=== PATIENT | female | born 1945 | race Caucasian/White ===

== ENCOUNTER 2018-11-19 08:00 | Outpatient (CLI) | payer MEDICARE, OTHER ==
[2018-11-19 13:05] LABS: BASOPHILS # (AUTO) 0.2 10^3/uL (0.0-0.1); BASOPHILS % (AUTO) 2.5 %; EOSINOPHILS # (AUTO) 0.4 10^3/uL (0.0-0.7); EOSINOPHILS % (AUTO) 5.9 %; HGB - HEMOGLOBIN 12.5 g/dL (12.0-16.0); LYMPHOCYTES # (AUTO) 1.7 10^3/uL (1.5-3.5); MEAN CORPUSCULAR HEMOGLOBIN 29.9 pg (27.0-31.0); MEAN CORPUSCULAR HGB CONC 34.3 g/dL (32.0-36.0); MEAN CORPUSCULAR VOLUME 87.1 fL (81.0-99.0); MEAN PLATELET VOLUME 7.7 fL (7.9-10.8); MONOCYTES # (AUTO) 0.5 10^3/uL (0.0-1.0); NEUTROPHILS # (AUTO) 4.1 10^3/uL (1.5-6.6); NEUTROPHILS % (AUTO) 59.6 %; PLT - PLATELET COUNT 332 10^3/uL (130-450); RED BLOOD COUNT 4.18 10^6/uL (4.20-5.40); RED CELL DISTRIBUTION WIDTH 12.4 % (12.0-15.0); WHITE BLOOD COUNT 6.9 x10^3/uL (4.8-10.8)
[2018-11-19 13:37] LABS: ALBUMIN 4.1 g/dL (3.2-5.5); ALBUMIN/GLOBULIN RATIO 1.2 (1.0-2.2); ALKALINE PHOSPHATASE 86 IU/L (42-121); ALT ALANINE AMINOTRANSFERASE 50 IU/L (10-60); AST ASPARTATE AMINOTRANSFERASE 34 IU/L (10-42); BILIRUBIN,TOTAL 0.7 mg/dL (0.2-1.0); BUN - BLOOD UREA NITROGEN 17 mg/dL (6-20); CALCIUM 8.7 mg/dL (8.5-10.3); CARBON DIOXIDE - CO2 26 mmol/L (21-32); CHLORIDE 99 mmol/L (101-111); CHOLESTEROL 293 mg/dL; CREATININE 1.1 mg/dL (0.4-1.0); GFR - MDRD 49 (>89); GLUCOSE 172 mg/dL (70-100); HDL CHOLESTEROL 49 mg/dL; LDL CHOLESTEROL,CALCULATED 204 mg/dL; LDL/HDL RATIO 4.2 (<4.4); SODIUM 133 mmol/L (135-145); TOTAL PROTEIN 7.6 g/dL (6.7-8.2); VLDL CHOLESTEROL 40 mg/dL
[2018-11-19 14:49] LABS: HB2 TOTAL 13.4 g/dL; HEMOGLOBIN A1C 0.6 g/dL; HEMOGLOBIN A1C % 6.2 % (4.6-6.2)
== END 2018-11-19 23:59 | disposition home or self-care (01) ==
LOC: LAB.WCP 08:00
PROVIDERS: ATTEND Family Medicine
DX: E11.9 Type 2 diabetes mellitus without complications (principal); I10 Essential (primary) hypertension; E78.5 Hyperlipidemia, unspecified
CPT/HCPCS: 36415; 80053; 80061; 83036; 83721; 84443; 85025

== ENCOUNTER 2018-11-29 10:18 | Outpatient (CLI) | payer MEDICARE | END 2018-11-29 10:19 | disposition home or self-care (01) | LOC: RT 10:18 | PROVIDERS: ATTEND Internal Medicine Gastroenterology | DX: E78.5 Hyperlipidemia, unspecified (principal); I10 Essential (primary) hypertension | CPT/HCPCS: 93005 ==

== ENCOUNTER 2018-12-03 06:07 | Day surgery (SDC) | payer MEDICARE ==
[2018-12-03] MEDS ORDERED: fentaNYL 250 MCG/5 ML VIAL IVP ONE (06:08)
[2018-12-03] MEDS ORDERED: MIDAZOLAM 2 MG/2 ML VIAL IVP ONE (06:08)
[2018-12-03] MEDS ORDERED: LACTATED RINGERS 1,000 ML IV ONE (06:50)
[2018-12-03 08:31] VITALS: BP 148/75
== END 2018-12-03 06:08 | disposition home or self-care (01) ==
LOC: SDS 06:07
PROVIDERS: ATTEND Internal Medicine Gastroenterology
PROC: 0DBL8ZZ Excision of Transverse Colon, Via Natural or Artificial Opening Endoscopic (ICD-10-PCS; 2018-12-03)
PROC: 0DBN8ZZ Excision of Sigmoid Colon, Via Natural or Artificial Opening Endoscopic (ICD-10-PCS; 2018-12-03)
PROC: 0DBP8ZZ Excision of Rectum, Via Natural or Artificial Opening Endoscopic (ICD-10-PCS; 2018-12-03)
PROC: 0DBP8ZX Excision of Rectum, Via Natural or Artificial Opening Endoscopic, Diagnostic (ICD-10-PCS; principal; 2018-12-03 07:30)
DX: C20 Malignant neoplasm of rectum (principal); D12.5 Benign neoplasm of sigmoid colon; D12.3 Benign neoplasm of transverse colon; K62.1 Rectal polyp; K57.30 Diverticulosis of large intestine without perforation or abscess without bleeding; E11.9 Type 2 diabetes mellitus without complications; I10 Essential (primary) hypertension; E78.5 Hyperlipidemia, unspecified; Z79.02 Long term (current) use of antithrombotics/antiplatelets
CPT/HCPCS: 45380; J3010; J7120

== ENCOUNTER 2018-12-09 10:05 | Outpatient (CLI) | payer MEDICARE | END 2018-12-09 10:06 | disposition home or self-care (01) | LOC: LAB 10:05 | PROVIDERS: ATTEND Internal Medicine Gastroenterology | DX: C20 Malignant neoplasm of rectum (principal) | CPT/HCPCS: 36415; 82378 ==

== ENCOUNTER 2018-12-14 11:56 | Outpatient (CLI) | payer MEDICARE ==
[2018-12-14] MEDS ORDERED: IOVERSOL 320 100 ML VIAL IVP ONE ×2 (12:09→17:03)
[2018-12-14] MEDS ORDERED: IOPAMIDOL-300 50 ML VIAL ONE (12:09)
--- NOTE | 2018-12-14 15:47 | CT Report ---
Reason: RECTAL CANCER Procedure Date: 12/14/2018 Accession Number: [id number] / [id number] Procedure: CT - Abdomen/Pelvis W CPT Code: FULL RESULT: EXAM: CT CHEST, ABDOMEN AND PELVIS EXAM DATE: 12/14/2018 01:46 PM. CLINICAL HISTORY: Rectal carcinoma. COMPARISONS: ABDOMEN/PELVIS W/ 12/14/2018 1:34 PM. TECHNIQUE: Routine helical CT imaging was performed through the chest, abdomen, and pelvis. IV contrast: OPTI 320 100mL. Enteric contrast: No. Reconstructions: Coronal and sagittal. In accordance with CT protocol optimization, one or more of the following dose reduction techniques were utilized for this exam: automated exposure control, adjustment of mA and/or KV based on patient size, or use of iterative reconstructive technique. FINDINGS: Lungs/Pleura: A solitary 3 mm pulmonary nodule is seen on image 23 series 3 in the left upper lobe, no spiculations. No suspicious nodules, bronchial thickening, consolidation, or edema. Pulmonary vasculature is normal. No effusions or pneumothorax. Mediastinum: The thoracic aorta demonstrates a marked amount of soft atherosclerotic plaque without significant calcifications and no aneurysm formation. There is no pericardial effusion and the pulmonary artery is normal in caliber. No mediastinal or hilar lymphadenopathy is appreciated. Liver: Normal. Gallbladder/Bile Ducts: Marked cholelithiasis without cholecystitis. Spleen: Normal. Pancreas: Normal. Adrenal Glands: Normal. Kidneys: No hydronephrosis or calculi. Peritoneal Cavity/Bowel: There is no bowel obstruction. There is no intraperitoneal or retroperitoneal lymphadenopathy in the abdominal cavity. No free fluid or free air. Pelvic Organs: A 0.9 x 0.6 cm deep iliac node on image 62 series 3 does not meet size criteria but is prominent and without fatty hilum, refer to image 32 of series 5. Contralaterally, and less prominent on image 59 series 3 and image 31 series 5 is a 0.8 x 0.4 cm node, this does not meet size criteria. The known rectal cancer is not well seen. Surrounding fat in the ischioanal fossa is generally preserved. Vasculature: Abdominal aorta is atherosclerotic, mixed calcific and soft plaque. Bones: No aggressive osseous lesions. Other: None. IMPRESSION: Prominent subcentimeter lymph nodes as described. No evidence of distal metastatic disease. RADIA
[2018-12-14] MEDS ORDERED: IOPAMIDOL-300 50 ML VIAL PO ONE (17:03)
== END 2018-12-14 11:57 | disposition home or self-care (01) ==
LOC: DI 11:56
PROVIDERS: ATTEND Internal Medicine Gastroenterology
DX: C20 Malignant neoplasm of rectum (principal); K80.20 Calculus of gallbladder without cholecystitis without obstruction; R91.1 Solitary pulmonary nodule
CPT/HCPCS: 71260; 74177; Q9967

== ENCOUNTER 2019-01-05 15:32 | Outpatient (CLI) | payer MEDICARE ==
[2019-01-05 16:18] LABS: BILIRUBIN,URINE NEGATIVE (NEGATIVE); GLUCOSE, URINE (UA) NEGATIVE (NEGATIVE); KETONES,URINE (UA) NEGATIVE (NEGATIVE); LEUKOCYTE ESTERASE, URINE NEGATIVE (NEGATIVE); NITRITE,URINE NEGATIVE (NEGATIVE); OCCULT BLOOD,URINE NEGATIVE (NEGATIVE); PROTEIN,URINE NEGATIVE (NEGATIVE); UROBILINOGEN,URINE 0.2 (NORMAL) E.U./dL (NORMAL)
[2019-01-05 16:28] LABS: CREATININE,URINE 26.2 mg/dL; MICROALBUMIN,URINE 1.1 mg/dL (0-300.0)
[2019-01-05 16:38] LABS: BACTERIA,URINE None Seen /HPF (None Seen); CLARITY,URINE CLEAR (CLEAR); RBC,URINE None Seen /HPF (0-5); SQUAMOUS EPITHELIAL CELL,UR NONE SEEN (<= Few)
== END 2019-01-05 15:33 | disposition home or self-care (01) ==
LOC: LAB 15:32
PROVIDERS: ATTEND Internal Medicine Nephrology
DX: N28.9 Disorder of kidney and ureter, unspecified (principal); N39.0 Urinary tract infection, site not specified
CPT/HCPCS: 36415; 81001; 82043; 82570; 87086

== ENCOUNTER 2019-01-11 08:00 | Day surgery (SDC) | payer MEDICARE ==
[~2019-01-11 08:00] MED LIST: ceFAZolin 2 GM/50 ML 2 GM/50 ML BAG IV ONE; metroNIDAZOLE 500 MG/100 ML 500 MG/100 ML BAG ONE
[2019-01-11] MEDS ORDERED: LACTATED RINGERS 1,000 ML IV ONE ×2 (08:03→13:00)
--- NOTE | 2019-01-11 09:04 | ANESTHESIA ---
Pre-Anesthesia VS, & Labs - Diagnosis Rectal Cancer - Procedure transanal resection of Rectal Tumor Vital Signs: Temp Pulse Resp BP Pulse Ox 36.2 C L 97 16 160/79 H 96 01/11/19 08:21 01/11/19 08:21 01/11/19 08:21 01/11/19 08:21 01/11/19 08:21 Height 5 ft 2 in Weight (kg) 60 kg - NPO >8 hours - Is Patient ?: No - Lab Results Current Lab Results: Laboratory Tests 01/11/19 08:28: POC Whole Bld Glucose 151 H Home Medications and Allergies Glimepiride 2 mg PO DAILY 12/03/18 Rosuvastatin Calcium 20 mg PO DAILY 12/03/18 Telmisartan/Amlodipine [Telmisartan-Amlodipine 40-5 mg] 1 each PO DAILY 12/03/18 Allergies/Adverse Reactions: Allergies Allergy/AdvReac Type Severity Reaction Status Date / Time No Known Drug Allergies Allergy Verified 12/03/18 06:28 Anes History & Medical History - Anesthetic History Anesthesia Complications: reports: No previous complications - Medical History Cardiovascular: reports: Hypertension, High cholesterol Pulmonary: reports: None Gastrointestinal: reports: GI bleed, Other Urinary: reports: Nocturia Musculoskeletal: reports: None Endocrine/Autoimmune: reports: Type 2 diabetes Skin: reports: None Smoking Status: Never smoker - Surgical History General: Colonoscopy Exam General: Alert Dental: WNL Neck Mobility: Normal Mallampati classification: II Respiratory: Lungs clear Cardiovascular: Regular rate, Normal S1, Normal S2 Plan Anesthesia Type: General Consent for Procedure(s) Verified and Reviewed: Yes Code Status: Attempt Resuscitation ASA classification: 2-Mild systemic disease Is this case an emergency?: No
[2019-01-11] MEDS ORDERED: LIDOCAINE JELLY 2% 5 ML TUBE TOP ONE (10:40)
[2019-01-11] MEDS ORDERED: LIDOCAINE JELLY 2% 6 ML JEL.PF.APP ONE (10:40)
[2019-01-11] MEDS ORDERED: BUPIVACAINE 0.5%-EPI 1:200000 PF 30 ML VIAL SUBQ ONE ×2 (11:01)
[2019-01-11] MEDS ORDERED: BUPIVACAINE 0.5%-EPI 1:200000 PF 30 ML VIAL ONE (11:05)
[2019-01-11] MEDS ORDERED: fentaNYL 100 MCG/2 ML VIAL IVP ONE (11:07)
[2019-01-11] MEDS ORDERED: ePHEDrine 50 MG/ML VIAL IVP ONE (11:07)
[2019-01-11] MEDS ORDERED: ROCURONIUM 50 MG/5 ML VIAL IVP ONE (11:07)
[2019-01-11] MEDS ORDERED: ceFAZolin 2 GM/50 ML 2 GM/50 ML BAG IV ONE (11:07)
[2019-01-11] MEDS ORDERED: PROPOFOL 200 MG/20 ML VIAL IVP ONE (11:07)
[2019-01-11] MEDS ORDERED: GLYCOPYRROLATE 1 MG/5 ML VIAL IVP ONE (11:07)
[2019-01-11] MEDS ORDERED: NEOSTIGMINE 1 MG/1 ML 10 ML MDV IVP ONE (11:07)
[2019-01-11] MEDS ORDERED: ONDANSETRON 4 MG/2 ML VIAL IVP ONE (11:07)
[2019-01-11] MEDS ORDERED: ACETAMINOPHEN 1,000 MG/100 ML 100 ML IV ONE (11:07)
[2019-01-11] MEDS ORDERED: MIDAZOLAM 2 MG/2 ML VIAL IVP ONE (11:07)
[2019-01-11] MEDS ORDERED: metroNIDAZOLE 500 PREMIX IV ONE (11:07)
[2019-01-11] MEDS ORDERED: ONDANSETRON 4 MG/2 ML VIAL IVP PRN (11:31)
[2019-01-11] MEDS ORDERED: ACETAMINOPHEN 325 MG TABLET PO PRN (11:31)
[2019-01-11] MEDS ORDERED: IBUPROFEN 400 MG TABLET PO PRN (11:31)
--- NOTE | 2019-01-11 12:18 | OPERATIVE REPORT ---
DATE OF SERVICE: 01/11/2019 Physician: James Langston MD PREOPERATIVE DIAGNOSIS: Rectal cancer. POSTOPERATIVE DIAGNOSIS: Rectal cancer. PROCEDURE PERFORMED: Transanal resection of rectal cancer. ANESTHESIA: General endotracheal by Dr. Arora. SURGEON: James Langston MD ESTIMATED BLOOD LOSS: 10 mL COMPLICATIONS: None. FINDINGS: An ulcerated 1.5 cm lesion was present in the anterior wall of the lower rectum near the j unction of the lower and middle thirds. A full-thickness rectal wall excision was performed with virgie ss margins of 5 to 10 mm circumferentially. INDICATIONS: The patient is a 73-year-old woman who was noted on recent colonoscopy to have a sessil e polypoid lesion in the anterior wall of the lower rectum measuring 1.5 cm in diameter, biopsy which revealed invasive adenocarcinoma. Staging evaluation revealed no evidence of transmural involvement or regional or distant spread, and she was interested and advised to undergo a sphincter-sparing tra nsanal excision in an attempt at sphincter breast-conservation therapy. TECHNIQUE: After informed consent mechanical antibiotic bowel preparation, the patient was taken to the operating room where she was placed under general endotracheal anesthesia. She was placed in the prone jackknife position with the buttocks taped apart. Preoperative preparation also include appli cation of sequential calf compression boots, administration of 2 grams of cefazolin and 500 mg of met ronidazole intravenously within an hour of the incision. The anal canal was gently dilated to two fi ngerbreadths, and a bivalve anal speculum inserted. The lesion was identified, and margins were serena ed by scoring the mucosa with electrocautery circumferentially between 5 and 10 mm away from the mellissa s margin of the lesion. Stay sutures were placed bilaterally in the rectal wall with 0 Vicryl suture s. Next, using the LigaSure device, a full-thickness excision of the rectal wall including the lesion wi th the above margins was carried out en bloc, and the tissue sent for pathologic evaluation. The Lig aSure also provided hemostasis. The resulting defect in the rectal wall was repaired with a single l jaxson of continuous 0 Vicryl in a locking fashion to provide further hemostasis. The closure was perf ormed transversely to minimize narrowing of the rectal wall. Bimanual examination of the rectovagina l septum confirmed preservation of the vaginal wall. After hemostasis was assured, a wick of Gelfoam soaked in viscous Xylocaine was inserted in the anal canal. 20 mL of 0.5% Marcaine with epinephrine were infiltrated percutaneously to create an anorectal block. Dry sterile dressings were applied. Anesthesia was terminated, and patient was transferred to the recovery room in satisfactory condition . All counts were correct x2. No drains were used. BLOOD LOSS: 10 mL. cc: Ancelmo Hodge MD TD: 01/11/2019 11:45
[2019-01-11 14:39] VITALS: BP 125/63
== END 2019-01-11 08:01 | disposition home or self-care (01) ==
LOC: SDS 08:00
PROVIDERS: ATTEND Internal Medicine Gastroenterology
PROC: 0DBP0ZZ Excision of Rectum, Open Approach (ICD-10-PCS; principal; 2019-01-11 09:15)
DX: C20 Malignant neoplasm of rectum (principal); I12.9 Hypertensive chronic kidney disease with stage 1 through stage 4 chronic kidney disease, or unspecified chronic kidney disease; E11.22 Type 2 diabetes mellitus with diabetic chronic kidney disease; N18.9 Chronic kidney disease, unspecified; Z79.84 Long term (current) use of oral hypoglycemic drugs
CPT/HCPCS: 45171; J0131; J0690; J3490; J7120

== ENCOUNTER 2019-07-02 07:14 | Outpatient (CLI) | payer MEDICARE ==
[2019-07-02 12:34] LABS: BUN - BLOOD UREA NITROGEN 18 mg/dL (6-20); CALCIUM 9.3 mg/dL (8.5-10.3); CARBON DIOXIDE - CO2 27 mmol/L (21-32); CHLORIDE 105 mmol/L (101-111); CHOL/HDL RATIO 4.1 (<4.4); CHOLESTEROL 195 mg/dL; GFR - MDRD 54 (>89); GLUCOSE 129 mg/dL (70-100); HDL CHOLESTEROL 47 mg/dL; LDL CHOLESTEROL,CALCULATED 118 mg/dL; LDL/HDL RATIO 2.5 (<4.4); SODIUM 141 mmol/L (135-145); VLDL CHOLESTEROL 30 mg/dL
[2019-07-02 12:49] LABS: CREATININE,URINE 88.3 mg/dL; MICROALBUMIN,URINE 2.3 mg/dL (0-300.0)
[2019-07-02 13:22] LABS: HB2 TOTAL 13.7 g/dL; HEMOGLOBIN A1C 0.84 g/dL; HEMOGLOBIN A1C % 7.8 % (4.6-6.2)
== END 2019-07-02 23:59 | disposition home or self-care (01) ==
LOC: LAB.N 07:14
PROVIDERS: ATTEND Family Medicine
DX: E11.9 Type 2 diabetes mellitus without complications (principal); E78.5 Hyperlipidemia, unspecified
CPT/HCPCS: 36415; 80048; 80061; 82043; 82570; 83036; 83721; 84443

== ENCOUNTER 2024-05-05 10:06 | Emergency (ER) | payer MEDICARE ==
[2024-05-05 11:16] LABS: BASOPHILS # (AUTO) 0.1 10^3/uL (0.0-0.1); BASOPHILS % (AUTO) 1.5 %; EOSINOPHILS # (AUTO) 0.4 10^3/uL (0.0-0.7); EOSINOPHILS % (AUTO) 5.3 %; HGB - HEMOGLOBIN 12.1 g/dL (12.0-16.0); LYMPHOCYTES # (AUTO) 1.5 10^3/uL (1.5-3.5); LYMPHOCYTES % (AUTO) 22.9 %; MEAN CORPUSCULAR HEMOGLOBIN 29.2 pg (27.0-31.0); MEAN CORPUSCULAR HGB CONC 34.6 g/dL (32.0-36.0); MEAN CORPUSCULAR VOLUME 84.3 fL (81.0-99.0); MEAN PLATELET VOLUME 9.4 fL (7.9-10.8); MONOCYTES # (AUTO) 0.5 10^3/uL (0.0-1.0); NEUTROPHILS # (AUTO) 4.1 10^3/uL (1.5-6.6); PLT - PLATELET COUNT 284 10^3/uL (130-450); RED BLOOD COUNT 4.15 10^6/uL (4.20-5.40); RED CELL DISTRIBUTION WIDTH 13.1 % (12.0-15.0); WHITE BLOOD COUNT 6.6 x10^3/uL (4.8-10.8)
[2024-05-05 11:30] LABS: ALBUMIN/GLOBULIN RATIO 1.2 (1.0-2.2); BILIRUBIN,TOTAL 0.5 mg/dL (0.2-1.0); CALCIUM 9.1 mg/dL (8.5-10.3); CREATININE 0.8 mg/dL (0.6-1.3); POTASSIUM 3.2 mmol/L (3.5-4.5); TOTAL PROTEIN 7.3 g/dL (6.4-8.9)
--- NOTE | 2024-05-05 11:54 | ED Physician Documentation ---
History of Present Illness - Stated complaint Stated Complaint: GI,SOA,COUGH - Chief complaint Chief Complaint: Resp - History obtained from History obtained from: Patient - Additonal information Additional information: Patient is a 78-year-old female presenting to the emergency department with multiple complaints including rectal bleeding cough generalized fatigue that has been going on for multiple weeks.Patient has past medical history remarkable for rectal cancer, history of hypertension, history of type 2 diabetes on insulin. Patient has been compliant with her medications. She receives the majority of her care in the [facility] where she recently traveled from and returned on April 10 here to the [facility]. She has plans to return to the [facility] at the end of May but wanted to further evaluate her rectal bleeding prior to returning. She notes no dizziness or lightheadedness associated with her symptoms. She does feel short of breath with her acute cough. She denies any recent sick contacts but did recently travel from the [facility]. She denies any diarrhea. She notes intermittent rectal bleeding going on for multiple months. She notes this was similar to when she had rectal cancer back in 2019 where she had a colonoscopy to have it removed. She notes she has not followed up with this GI doctor. She denies requiring any chemo or radiation therapy. She denies any changes in weight or appetite. She denies any fevers or chills. She denies any abdominal pain associated with her symptoms.She has not seen anyone else for the symptoms. PD PAST MEDICAL HISTORY - Past Medical History Past Medical History: Yes Cardiovascular: Hypertension, High cholesterol Respiratory: None Neuro: None Endocrine/Autoimmune: Type 2 diabetes GI: GI bleed, Other : Nocturia HEENT: None Psych: None Musculoskeletal: None Derm: None - Past Surgical History Past Surgical History: Yes General: Colonoscopy - Present Medications Home Medications: Ambulatory Orders Medication Instructions Recorded Confirmed Clopidogrel Bisulfate [Plavix] 1 tab PO DAILY 05/05/24 05/05/24 Doxycycline [Vibramycin] 100 mg PO BID #14 tablet 05/05/24 Insulin NPH Hum/Reg Insulin Hm 1 unit SUBQ DAILY 05/05/24 05/05/24 [Novolin 70-30 Flexpen] amLODIPine [Norvasc] 10 mg PO DAILY 05/05/24 05/05/24 - Allergies Allergies/Adverse Reactions: Allergies Allergy/AdvReac Type Severity Reaction Status Date / Time No Known Drug Allergies Allergy Verified 05/05/24 10:35 - Social History Does the pt smoke?: No Smoking Status: Never smoker PD ED PE NORMAL - Vitals Vital signs reviewed: Yes - General General: Alert and oriented X 3 - HEENT HEENT: Atraumatic - Neck Neck: Supple, no meningeal sign - Cardiac Cardiac: RRR, No murmur, No gallop, No rub - Respiratory Respiratory: No respiratory distress, Clear bilaterally - Abdomen Abdomen: Normal bowel sounds, Soft, Non tender, Non distended - Female Female : Deferred - Rectal Rectal: Other (Rectal exam performed with community education coordinator present in room showing no palpable rectal mass there is an external nonbleeding nonthrombosed hemorrhoid with no significant pain on examination. No palpable internal hemorrhoids or mass on examination. Guaiac test is positive.) - Back Back: No CVA TTP - Derm Derm: Normal color - Extremities Extremities: No deformity - Neuro Neuro: Alert and oriented X 3 Results - Vitals Vitals: Vital Signs - 24 hr 05/05/24 05/05/24 05/05/24 10:18 12:29 14:00 Temperature 36.7 C Heart Rate 92 72 84 Respiratory 18 18 26 H Rate Blood Pressure 172/73 H 175/85 H 143/63 H O2 Saturation 98 98 95 Oxygen O2 Source Room air - Labs Labs: Microbiology 05/05/24 11:20 Occult Blood - Final Stool Laboratory Tests 05/05/24 05/05/24 05/05/24 10:55 10:55 10:55 WBC 6.6 RBC 4.15 L Hgb 12.1 Hct 35.0 L MCV 84.3 MCH 29.2 MCHC 34.6 RDW 13.1 Plt Count 284 MPV 9.4 Neut # (Auto) 4.1 Lymph # (Auto) 1.5 Whitfield # (Auto) 0.5 Eos # (Auto) 0.4 Baso # (Auto) 0.1 Absolute Nucleated RBC 0.00 Nucleated RBC % 0.0 Sodium 139 Potassium 3.2 L Chloride 105 Carbon Dioxide 28 Anion Gap 6.0 BUN 11 Creatinine 0.8 Estimated GFR (MDRD) 69 L Glucose 171 H Calcium 9.1 Total Bilirubin 0.5 AST 13 ALT 10 Alkaline Phosphatase 103 Total Protein 7.3 Albumin 4.0 Globulin 3.3 Albumin/Globulin Ratio 1.2 Lipase 25 Nasal Adenovirus (PCR) NOT DETECTED Nasal B. parapertussis DNA (PCR) NOT DETECTED Nasal Coronavir 229E PCR NOT DETECTED Nasal Coronavir HKU1 PCR NOT DETECTED Nasal Coronavir NL63 PCR NOT DETECTED Nasal Coronavir OC43 PCR NOT DETECTED Nasal Enterovir/Rhinovir PCR NOT DETECTED Nasal Influenza B PCR NOT DETECTED Nasal Influenza A PCR NOT DETECTED Nasal Parainfluen 1 PCR NOT DETECTED Nasal Parainfluen 2 PCR NOT DETECTED Nasal Parainfluen 3 PCR NOT DETECTED Nasal Parainfluen 4 PCR NOT DETECTED Nasal RSV (PCR) NOT DETECTED Nasal B.pertussis DNA PCR NOT DETECTED Nasal C.pneumoniae (PCR) NOT DETECTED Macario Human Metapneumo PCR NOT DETECTED Nasal M.pneumoniae (PCR) NOT DETECTED Nasal SARS-CoV-2 (PCR) NOT DETECTED PD Medical Decision Making - ED course Complexity details: reviewed old records, reviewed results ED course: Patient is a 78-year-old female presenting to the emergency department with diffuse complaints of rectal bleeding shortness of breath cough symptoms have been going on for 2 weeks however on further examination patient notes rectal bleeding has been going on for multiple months. She notes she has had episodes of bright red blood as well as blood streaked in her stool going on for a few mo nths now but seems to have worsened in the last 2 weeks as well as her cough and congestion and shortness of breath. Patient has not seen anyone else for these problems. She does have history of rectal cancer but this was treated back in 2019 after colonoscopy requiring no chemo or radiation treatment. Patient denies any fevers no weight loss no abdominal pain associate with symptoms. Vital stable on arrival. Physical exam shows rectal exam with community education coordinator showing bright red blood in stool with 1 external nonthrombosed nonbleeding hemorrhoid and no palpable internal mass or hemorrhoid. Additionally no abdominal tenderness on examination normal cardiac and lung sounds on auscultation. Labs obtained here in the emergency department showed no significant anemia. Hemoglobin stable at 12 no recent labs to complete their anemia to at this time. No significant elevation in BUN to creatinine ratio concerning for upper GI bleed additionally there is no significant signs of AMNA or leukocytosis concerning for infection. Additionally guaiac test is positive with bright red blood on physical exam. 1315:Discussed case with GI Dr. Bryan and informed him about patient's work-up. He will follow-up with patient for colonoscopy in the outpatient setting. Chest x-ray here in the emergency department shows possible left lower lobe pneumonia/opacity. Will cover with oral antibiotics here in the emergency department. Patient tested negative on viral panel and curb 65 of 1 here in emergency department. Patient is safe for discharge home at this time she was stressed on importance of following up with GI at [facility] in outpatient setting. She is instructed to return with any abdominal pain decreased eating shortness of breath, fevers, worsening cough dizziness or lightheadedness associate with her symptoms. Patient understands and is agreeable with this plan. Departure - Departure Disposition: 01 Home, Self Care Clinical Impression: GI bleed, Rectal bleeding, Left lower lobe pneumonia, Hypokalemia Condition: Good Instructions: Pneumonia Dc, Diet High Potassium Dc, ED Hematochezia Stable Follow-Up: POLI BRYAN MD [Physician No Access] - Within 1 week (FOllow-up for colonoscopy. Hx of rectal cancer.) Prescriptions: Doxycycline [Vibramycin] 100 mg PO BID #14 tablet Comments: You were seen here in the emergency department for rectal bleeding and your workup here shows positive blood in your stool you will require colonoscopy in the outpatient setting however if bleeding increases you develop dizziness lightheadedness or shortness of breath you should return to the emergency department. Given you prescription to cover for pneumonia given chest x-ray showed findings concerning for possible left lower lobe pneumonia. Follow-up wi PCP in 2 weeks for repeat imaging of chest x-ray and follow-up with Dr. Bryan I have given you referral number for colonoscopy for further evaluation. Return with any other new or worsening symptoms. Forms: PCP List
--- NOTE | 2024-05-05 12:41 | XRAY Report ---
PROCEDURE: Chest 2V INDICATIONS: cough TECHNIQUE: 2 views of the chest were acquired. COMPARISON: 12/14/2018 FINDINGS: Surgical changes and devices: None. Lungs and pleura: No pleural effusions or pneumothorax. Lungs are clear. Mediastinum: Mediastinal contours appear normal. Heart size is normal. Bones and chest wall: No suspicious bony lesions. Overlying soft tissues appear unremarkable. IMPRESSION: No acute cardiopulmonary process. Reviewed by: Luis Nava MD on 05/05/2024 12:40 PM PDT Approved by: Luis Nava MD on 05/05/2024 12:40 PM PDT Station ID: [id number]
[2024-05-05 13:37] LABS: B. PARAPERTUSSIS- RESP PCR PAN NOT DETECTED; B. PERTUSSIS- RESP PCR PANEL NOT DETECTED; C. PNEUMONIAE- RESP PCR PANEL NOT DETECTED; CORONAVIRUS 229E-RESP PCR NOT DETECTED; CORONAVIRUS HKU1-RESP PCR NOT DETECTED; CORONAVIRUS NL63-RESP PCR NOT DETECTED; CORONAVIRUS OC43-RESP PCR NOT DETECTED; HUMAN METAPNEUMOVIRUS NOT DETECTED; INFLUENZA A- RESP PCR PANEL NOT DETECTED; INFLUENZA B - RESP PCR PANEL NOT DETECTED; M. PNEUMONIAE- RESP PCR PANEL NOT DETECTED; PARAINFLUENZA VIRUS 1 NOT DETECTED; PARAINFLUENZA VIRUS 2 NOT DETECTED; PARAINFLUENZA VIRUS 3 NOT DETECTED; PARAINFLUENZA VIRUS 4 NOT DETECTED; RHINOVIRUS/ENTEROVIRUS NOT DETECTED; RSV- RESP PCR PANEL NOT DETECTED; SARS-CoV-2 -RESP PCR PANEL NOT DETECTED
[2024-05-05] MEDS: POTASSIUM CHLORIDE 20 MEQ TABLET PO STA (14:39)
[2024-05-05 15:53] VITALS: BP 122/82; O2SAT 98
== END 2024-05-05 15:44 | disposition home or self-care (01) ==
LOC: ED 10:06
DX: K92.2 Gastrointestinal hemorrhage, unspecified (principal); J18.9 Pneumonia, unspecified organism; E87.6 Hypokalemia; Z85.048 Personal history of other malignant neoplasm of rectum, rectosigmoid junction, and anus
CPT/HCPCS: 36415; 71046; 80053; 82272; 83690; 85025; 87633; 99284; A9270

== ENCOUNTER 2024-05-25 12:40 | Outpatient (CLI) | payer MEDICARE ==
[2024-05-25] MEDS ORDERED: DIATRIZOATE MEGLU/DIATRIZO SOD 30 ML BOTTLE PO ONE (12:46)
[2024-05-25] MEDS ORDERED: iohexoL-300 100 ML VIAL ONE (12:46)
[2024-05-25] MEDS: iohexoL-300 100 ML VIAL IVP ONE (13:56)
[2024-05-25] MEDS: DIATRIZOATE MEGLU/DIATRIZO SOD 30 ML BOTTLE PO ONE (13:56)
--- NOTE | 2024-05-25 16:38 | CT Report ---
PROCEDURE: Abdomen/Pelvis W INDICATIONS: RECTAL ADENOCARCINOMA CONTRAST: 100ml [id number] TECHNIQUE: After the administration of intravenous contrast, a CT scan of the abdomen and pelvis was performed. Images were recorded and evaluated at appropriate window settings. Reformats: coronal and sagittal. F or radiation dose reduction, the following was used: automated exposure control, adjustment of mA and /or kV according to patient size. COMPARISON: 12/14/2018 FINDINGS: Image quality: Diagnostic. Lower chest: Dictated separately Liver: No solid mass. Gallbladder: Extensive, dependently layering cholelithiasis of varying sizes. No gallbladder wall thi ckening or inflammation. Biliary tree: No intrahepatic or extrahepatic dilation, accounting for age. No choledocholithiasis. Spleen: No splenomegaly. Pancreas: No pancreatic ductal dilation. Adrenals: No adrenal nodule. Kidneys and ureters: No hydronephrosis. No renal cystic lesion which requires follow up. No solid mas s. Normal ureters. Stomach, bowel and peritoneum: Stomach and small bowel are normal. Normal appendix. Decompressed colo n with occasional diverticulosis. Decompressed rectum. Mildly enhancing wall thickening present from the right (5:00 to 12:00) position in the mid to lower rectum is visible. There is an exophytic nodul e arising to the right at the 9:00 position extending about 6 to 7 mm from the serosal surface. Overa ll craniocaudal dimension of possible mass is 3.5 cm. No pathologic free fluid. Lymph nodes: No central or retroperitoneal adenopathy. Vessels: Normal caliber abdominal aorta, IVC, and portal vein. Moderate atherosclerosis. Patent manoj l vein. PELVIS Reproductive organs: Normal for patient's age. Bladder: No abnormal wall thickening, accounting for underdistention. Pelvic lymph nodes: There are borderline right external iliac and left pelvic sidewall lymph nodes me asuring 7 and 6 mm respectively. Bones: No aggressive osseous abnormality. Other: No significant ventral or inguinal hernia. IMPRESSION: Possible rectal mass with 7 mm in extension beyond the serosal surface. Rectal protocol MRI is recomm ended for further detail. Borderline bilateral pelvic lymph nodes, single on each side and present previously but smaller. Cholelithiasis. No evidence of metastatic disease to the upper abdominal solid organs. Reviewed by: Bev Waters MD on 05/25/2024 4:36 PM PDT Approved by: Bev Waters MD on 05/25/2024 4:36 PM PDT Station ID: [id number]
--- NOTE | 2024-05-25 16:44 | CT Report ---
PROCEDURE: Chest W INDICATIONS: RECTAL ADEMOCARCINOMA CONTRAST: 100ml [id number] TECHNIQUE: After the administration of intravenous contrast, a CT scan of the chest was performed. Images were recorded and evaluated at appropriate window settings. Reformats: axial MIP of the chest, coronal and sagittal. For radiation dose reduction, the following was used: automated exposure control, adjustme nt of mA and/or kV according to patient size. COMPARISON: 12/14/2018 FINDINGS: Image quality: Diagnostic. Chest wall and lower neck: No thyroid nodule which requires sonographic follow up. No breast mass. No axillary or supraclavicular adenopathy by size. Lungs and pleura: Scarring anteriorly in the left upper lobe. Scarring at the left lung base in the l ingula and lower lobe. No pleural effusions. No pneumothorax. No suspicious pulmonary nodules which require follow up. Mediastinum: Heart size is normal. No pericardial effusion. Minor coronary artery calcification. The thoracic aorta is normal caliber. Beginning in the arch, there is heavy lobulated noncalcified athero sclerotic plaque continuing circumferentially through the thoracic aorta. No focal ulcerations. Pulmo nary arteries are normal caliber. No mediastinal adenopathy by size criteria. No anterior or posteri or mediastinal mass. Normal esophagus without hiatal hernia Bones: No aggressive osseous abnormality. Upper Abdomen: Dictated separately IMPRESSION: No evidence of metastatic disease in the chest. Heavy noncalcified atherosclerotic plaque beginning at the aortic arch. This has not significantly pr ogressed since the previous exam and there are no new ulcerations. Reviewed by: Bev Waters MD on 05/25/2024 4:43 PM PDT Approved by: Bev Waters MD on 05/25/2024 4:43 PM PDT Station ID: [id number]
== END 2024-05-25 12:41 | disposition home or self-care (01) ==
LOC: DI 12:40
PROVIDERS: ATTEND Internal Medicine Gastroenterology
DX: C20 Malignant neoplasm of rectum (principal); K80.20 Calculus of gallbladder without cholecystitis without obstruction; I70.0 Atherosclerosis of aorta
CPT/HCPCS: 71260; 74177; Q9963; Q9967